=== PATIENT | male | born 1980 | race Caucasian/White ===

== ENCOUNTER 2018-01-12 17:33 | Emergency (ER) | payer OTHER, MEDICAID, SELFPAY ==
[2018-01-12 17:34] VITALS: BP 122/79; PULSE 92; RESP 16; TEMP 36.9; O2SAT 95; BMI 25.8
--- NOTE | 2018-01-12 18:45 | ED.DCSUM_ITS ---
- ER Visit Summary Date of Service: 01/12/18 Chief Complaint: Left index finger pain History of Present Illness: The patient is a 37 M who reports that yesterday at work he smashed his left index finger between a forklift and a clamp. He has a pain is 10 out of 10 when he bumps it. Is 5 out of 10 at rest. Is not taking anything for pain. He describes the pain as throbbing. Physical Examination: Vitals: Stable. Afebrile. General: Well-nourished and well-developed. Head: Normocephalic atraumatic. Neck: Supple, no lymphadenopathy. No JVD. Nontender. Cardiovascular: Regular rate and rhythm. No murmurs. Respiratory: No respiratory distress. Clear to auscultation bilaterally. Abdominal: Soft, nontender, nondistended, normal bowel sounds. No guarding, rebound, or peritoneal signs. Back: Nontender. Extremities: Contusion to the distal phalanx of his left index finger with approximately 10% subungual hematoma. Is moderately tender to palpation. Skin: Normal color, no rash. Neurologic: Alert and oriented ?3. Cranial nerves II through XII are intact. Normal strength and sensation. Psych: Normal affect. Test Results: X-ray was negative Emergency Department Course and Treatment: Patient refused pain medications. He is resting comfortably. Treatment Plan: Patient will be discharged instructions to follow-up with [facility] in 1 week for another exam. Disposition: To home in improved and stable condition. Impression: 1. Crush injury left index finger. This note was generated with [employer] dictation software. It may contain incorrect words, spelling, and punctuation that were not noted in review of the chart prior to signing ED Disposition - Plan for ED Patient: Disposition: Home or Assisted Living Chief Complaint: Upper Extremity Injury Instructions: ED Crush Injury Finger No Fx Referrals: [facility] [GROUP OF PHYSICIANS] - 1 Week
== END 2018-01-12 18:56 | disposition home or self-care (01) ==
PROVIDERS: Emergency Provider Emergency Medicine
DX: S60.122A Contusion of left index finger with damage to nail, initial encounter (principal); Z72.0 Tobacco use; W23.1XXA Caught, crushed, jammed, or pinched between stationary objects, initial encounter; Y93.89 Activity, other specified; Y92.89 Other specified places as the place of occurrence of the external cause; Y99.0 Civilian activity done for income or pay
CPT/HCPCS: 73140; 99282

== ENCOUNTER 2018-11-13 18:14 | Emergency (ER) | payer MEDICAID, SELFPAY ==
[2018-11-13 18:16] VITALS: BP 117/70; PULSE 74; RESP 16; TEMP 36.7; O2SAT 99; BMI 26.2
--- NOTE | 2018-11-13 18:44 | ED.VISSUMM ---
- ER Visit Summary Date of Service: 11/13/18 Chief Complaint: Left-sided neck and shoulder pain History of Present Illness: The patient is a 38 M presenting with left-sided neck and shoulder pain. He states this started this morning. He states he had a sneezing fit. He felt he may have pulled a muscle in his left side of his neck. He has had pain since that time. He has pain which is worsened with moving his arm. He has tried no medications at home. No other injuries. He denies shortness of breath or other complaints. Physical Examination: Vitals are stable. Patient is afebrile. Alert no acute distress. HEENT exam is unremarkable. Neck is supple. Left paraspinal cervical muscle tenderness, no midline tenderness Lungs are clear and equal bilaterally. Heart is regular rate and rhythm. Extremities left posterior shoulder tenderness with active full range of motion, neurovascularly intact distally Skin is warm and dry. No focal neurologic deficit. Normal strength and sensation Remainder of exam is unremarkable. Emergency Department Course and Treatment: Patient was given Toradol, Norflex IM with some improvement. He is given prescription for Naprosyn and Flexeril. Advised to follow up with Dr. Wiggins on-call for no doctor. Advised return to ED for worsening complaints. Disposition: Discharge home Impression: Neck strain This note was generated with [employer] dictation software. It may contain incorrect words, spelling, and punctuation that were not noted in review of the chart prior to signing ED Disposition - Plan for ED Patient: Referrals: Care Physician,No Primary [Primary Care Provider] -
[2018-11-13] MEDS: Ketorolac 60 MG/2 ML Vial IM (18:57)
[2018-11-13] MEDS: Orphenadrine 60 MG/2 ML Ampul IM (18:57)
--- NOTE | 2018-11-13 19:41 | ED.DEP ---
ED Disposition - Plan for ED Patient: Instructions: Neck Sprain/Strain Prescriptions: cycloBENZAPRine HCl [Flexeril] 10 mg PO TID PRN #20 tablet PRN Reason: Muscle Spasm Naproxen [Naprosyn] 500 mg PO BID PRN #20 tablet Referrals: Hugh Wiggins DO [NON CLINICAL AFFILIATE] -
== END 2018-11-13 20:02 | disposition home or self-care (01) ==
PROVIDERS: Emergency Provider Emergency Medicine
DX: S16.1XXA Strain of muscle, fascia and tendon at neck level, initial encounter (principal); Z72.0 Tobacco use; X50.1XXA Overexertion from prolonged static or awkward postures, initial encounter; Y93.89 Activity, other specified; Y92.89 Other specified places as the place of occurrence of the external cause; Y99.8 Other external cause status
CPT/HCPCS: 96372; 99282

== ENCOUNTER 2020-01-16 00:57 | Emergency (ER) | payer OTHER, SELFPAY ==
[2020-01-16 00:58] VITALS: BP 138/96; PULSE 92; RESP 18; TEMP 36.3; O2SAT 97; BMI 27.0
--- NOTE | 2020-01-16 01:15 | ED.VIS.GEN ---
History of Present Illness Chief Complaint: Burn Informant: Patient Onset: Today - JPTA Context: Sudden Onset Timing: Continuous Quality: burn Location: left upper chest and neck and face Current Severity: Mild Maximum Severity: Moderate Worsened by: touching affected area Relieved by: lfeaving it alone Associated Symptoms: none Narrative: Patient suffered a work-related burn injury when he was working on the plumbing of a header pipe carrying 300 degree glycol. It burst, pouring the hot liquid all over his left face and shirt. He immediately took his shirt off. He suffered jerez to the left side of his face, neck, upper chest. It is sore, nothing is insensate, he has had some minor seeping from bullae that burst, and he has no severe pain. He was wearing eyeglasses at the time and he has no vision changes, none of the liquid got in his eye. He tasted very small amount of it, but he did not suffer any jerez on his lip or inside of his mouth. Past Medical History - Allergies and Home Meds Allergies/Adverse Reactions: Allergies No Known Allergies Allergy (Verified 01/16/20 01:02) Primary Care Physician: Care Physician,No Primary [Primary Care Provider] - Past Medical History: None Smoking Status: Current every day smoker Review of Systems General: Denies: Chills, Fever, Sweats Eyes: Denies: Visual changes - bilaterally, Diplopia ENT: Denies: Rhinorrhea, Sore throat Cardiovascular: Denies: Chest pain, Palpitations Respiratory: Denies: Dyspnea, Cough, Dyspnea on exertion Gastrointestinal: Denies: Abdominal pain, Nausea, Vomiting, Diarrhea, Melena, Hematochezia Genitourinary: Denies: Dysuria, Hematuria, Frequency Musculoskeletal: Denies: Back pain, Extremity Pain Skin: Reports: Wounds. Denies: Rash Neurological: Denies: Headache, Weakness, Numbness Physical Exam Vital Signs/Narrative: Vital Signs Temp Pulse Resp BP Pulse Ox 01/16/20 00:58 97.3 F L 92 18 138/96 H 97 General: Well nourished, Well developed, No Acute Distress Head: Normocephalic, Atraumatic Eyes: Perrl, EOMI, - - No sign of globe injury/burn. Normal conjunctivae bilaterally. ENT: Moist mucous membranes, No rhinorrhea, - - No lip vermilion or oral mucosal jerez/lesions. Neck: Supple, No lymphadenopathy, - - Full range of motion. First-degree burn to the left side of the neck. Respiratory: No distress, - - No stridor Extremities: Nontender - Full range of motion Skin: Normal color, No rash, Trauma - Burn to left upper chest, into the left side of the neck, a little around the backside of the neck, it looks like the liquid followed the collar around, and the left side of his face. Almost all of it is first-degree with a couple areas of second-degree involvement, there are 3 total small blisters anywhere between 1 and 2 cm in diameter, and the entire area. They are all already ruptured, and there is a drop or 2 of clear fluid on each of them. 1 is above the left eyebrow, the other 2 are on the left upper chest near the clavicle. There is no insensate skin or signs of necrotic tissue, the skin is intact throughout all of these areas. Neurological: Alert, Oriented x3, Cranial nerves II-XII grossly intact, Normal Strength, Normal Sensation Psychological: Normal affect, Normal Mood Diagnostic/Tx/Re-eval - Medical Decision Making Patient was reassured, do not see anything dangerous here, just uncomfortable burn. His wounds were cleansed and dressed with bacitracin where there is epidermal opening, he was given naproxen, there is no need for any antibiotics or other intervention at this time. He does not have his work shirt, so he was written off for the rest of the shift, and able to return to work with the only restriction being to keep his wounds dry, clean, covered. ED Disposition - Plan for ED Patient: Disposition: Home or Assisted Living Diagnosis: Thermal jerez of multiple sites Instructions: ED First- and Second-Degree Jerez Home Care Referrals: [facility] [GROUP OF PHYSICIANS] - 2 Days for wound check
[2020-01-16] MEDS: Naproxen 500 MG Tablet PO (01:21)
== END 2020-01-16 01:49 | disposition home or self-care (01) ==
PROVIDERS: Emergency Provider Emergency Medicine
DX: T21.01XA Burn of unspecified degree of chest wall, initial encounter (principal); T20.07XA Burn of unspecified degree of neck, initial encounter; F17.200 Nicotine dependence, unspecified, uncomplicated; Y92.89 Other specified places as the place of occurrence of the external cause
CPT/HCPCS: 99283

== ENCOUNTER → 2023-09-28 | Outpatient (CLI) | payer BC, SELFPAY ==
--- NOTE | 2023-09-28 06:50 | MRI_ITS ---
STUDY: MRI LUMBAR SPINE WITHOUT CONTRAST REASON FOR EXAM: Male, 42 years old. pain across lower back, does not radiate TECHNIQUE: Standardized fat and water weighted pulse sequences were obtained in the sagittal and axial planes. COMPARISON: X-ray the lumbar spine dated September 13, 2023 FINDINGS: Normal lumbar lordosis. There is no substantial scoliosis. Normal conus medullaris that terminates at the L1 level. No marrow edema or fracture or compression deformity is seen. No pars interarticularis defects are present. Normal spinal ligaments. T12-L1: Normal endplates. Normal disc height, hydration and morphology. Normal bilateral facet joints. Normal central canal and bilateral lateral recesses. Normal bilateral intervertebral neural foramina. L1-2: Normal endplates. Normal disc height, hydration and morphology. Normal bilateral facet joints. Normal central canal and bilateral lateral recesses. Normal bilateral intervertebral neural foramina. L2-3: Normal endplates. Normal disc height, hydration and morphology. Normal bilateral facet joints. Normal central canal and bilateral lateral recesses. Normal bilateral intervertebral neural foramina. L3-4: Normal endplates. Normal disc height, hydration and morphology. Normal bilateral facet joints. Normal central canal and bilateral lateral recesses. Normal bilateral intervertebral neural foramina. L4-5: Normal endplates. Normal disc height, hydration and morphology. Normal bilateral facet joints. Normal central canal and bilateral lateral recesses. Normal bilateral intervertebral neural foramina. L5-S1: Normal endplates. Normal disc height, hydration and morphology. Normal bilateral facet joints. Normal central canal and bilateral lateral recesses. Normal bilateral intervertebral neural foramina. Normal visualized sacral ala. Normal visualized paraspinous soft tissue structures. MRI/Spine Lumbar (Routine) IMPRESSION: Normal unenhanced MR examination of the lumbar spine. Electronically Signed: Alan Russell MD at 10:10 EDT ,
== END | disposition home or self-care (01) ==
PROVIDERS: Referring Provider Orthopaedic Surgery; Visit Provider Orthopaedic Surgery
DX: M47.816 Spondylosis without myelopathy or radiculopathy, lumbar region (principal)
CPT/HCPCS: 72148

== ENCOUNTER → 2024-06-11 | Outpatient (CLI) | payer OTHER, SELFPAY ==
[2024-06-11 17:18] LABS: Absolute Lymphocyte Count 2.19 X10^3/uL (0.83-4.51); Absolute Neutrophil Count 5.3 X10^3/uL (2.0-7.7); Basophil# 0.06 X10^3/uL; Basophil% 0.7 % (0-1); Eosinophil# 0.18 X10^3/uL; Eosinophils% 2.1 % (0-5); Hematocrit 40.7 % (40-54); Hemoglobin 14.4 g/dL (13.0-16.5); Lymphocyte # 2.19 X10^3/ul (0.83-4.51); Lymphocyte % 26.1 % (19-41); Mean Corp Hgb Conc 35.4 g/dL (32-36); Mean Corpuscular Hgb 29.9 pg (27.0-32.0); Mean Corpuscular Volume 84.4 fL (80-94); Mean Platelet Vol. 9.9 fl (6.2-12.0); Monocyte# 0.62 X10^3/uL; Monocyte% 7.4 % (0-10); NRBC Flagged by Analyzer 0 % (0-5); Neutrophil # 5.32 X10^3/uL (2.7-7.7); Neutrophil % 63.5 % (47-70); Platelet Count 384 K/mm3 (150-450); RBC Distribution Width CV 12.7 % (11.6-14.6); Red Blood Count 4.82 M/mm3 (4.6-6.2); White Blood Count 8.4 K/mm3 (4.4-11.0)
[2024-06-11 17:28] LABS: Erythrocyte Sedimentation Rate 11 mm/hr (0-20)
[2024-06-11 17:30] LABS: Hemoglobin A1c 5.1 % (3.8-5.6)
[2024-06-11 17:59] LABS: ALB/GLOB Ratio 0.9 RATIO (0.9-2.4); AST(SGOT) 31 U/L (15-37); Alanine Aminotransfer ALT/SGPT 56 U/L (16-61); Albumin, Serum 3.9 g/dL (3.2-5.0); Alkaline Phosphatase 63 U/L (45-117); Anion Gap 8 (5-15); BUN 16 mg/dL (7-18); BUN/Creat Ratio 15.2 RATIO (10-20); Calcium,Total 9.5 mg/dL (8.5-10.1); Chloride 103 mmol/L (98-107); Cholesterol 196 mg/dL (200); Creatinine, Serum 1.05 mg/dL (0.70-1.30); EST Glomerular Filtration Rate 81 mL/min (>60); Est Glom Filt Rate - Afr Amer 98 mL/min (>60); Globulin 4.2 g/dL (2.2-4.2); Glucose 82 mg/dL (74-106); High Density Lipoprotein 49 mg/dL; Potassium 3.6 mmol/L (3.5-5.1); Protein, Total 8.1 g/dL (6.4-8.2); Rheumatoid Factor < 10.0 IU/mL (<15); Sodium Level 136 mmol/L (136-145); Triglycerides 136 mg/dL; Very Low Density Lipoprotein 27 mg/dL (5-40)
[2024-06-13 15:07] LABS: Anti-Centromere B Ab <0.2 AI (0.0-0.9); Anti-Chromatin <0.2 AI (0.0-0.9); Anti-Jo <0.2 AI (0.0-0.9); Anti-Scleroderma-70 AB <0.2 AI (0.0-0.9); Anti-dsDNA Ab <1 IU/mL (0-9); CCP IgG Antibodies 12 units (0-19); RNP Ab <0.2 AI (0.0-0.9); SJOGREN'S Anti-SS-A test < 0.2 AI (0.0-0.9); SJOGREN'S Anti-SS-B test < 0.2 AI (0.0-0.9); Smith Ab <0.2 AI (0.0-0.9)
== END | disposition home or self-care (01) ==
LOC: VSLAB 15:31
DX: M25.50 Pain in unspecified joint (principal); Z13.6 Encounter for screening for cardiovascular disorders; Z13.1 Encounter for screening for diabetes mellitus; Z13.220 Encounter for screening for lipoid disorders
CPT/HCPCS: 36415; 80053; 80061; 83036; 84443; 85025; 85652; 86141; 86200; 86225; 86235; 86431